=== PATIENT | male | born 2005 | race Caucasian/White ===

== ENCOUNTER → 2025-02-27 | Day surgery (SDC) | payer BC ==
[~2025-02-27] MED LIST: ACETAMINOPHEN 1000 MG/100 ML 100 ML IV ONE; DEXAMETHASONE SOD PHOS INJ 4 MG/ML SDV ONE; DEXMEDETOMIDINE HCL 200 MCG/2 ML VIAL ONE; FENTANYL CITRATE/PF 100MCG/2 ML INJ ONE; LIDOCAINE HCL (LTA) 4 ML SOLN ONE; LIDOCAINE HCL 2% LOCAL INJ 5 ML SDV VIAL INJ ONE; MIDAZOLAM HCL 2 MG/2 ML VIAL ONE; ONDANSETRON HCL INJ 2MG/ML 2ML 2 MG/ML VIAL ONE; PROMETHAZINE HCL 6.25 MG/5 ML SYRUP ONE; PROPOFOL IV EMULSION 10 MG/ML 20 ML VIAL ONE; ROCURONIUM BROMIDE 1 ML IV ONE; SEVOFLURANE INHAL SOLN 250 ML PEN BTL ONE; SUGAMMADEX SODIUM 200 MG/2 ML VIAL IV ONE
[2025-02-27] MEDS: LACTATED RINGER'S 1,000 ML ONE (06:03)
[2025-02-27] MEDS: MEPERIDINE HCL INJ 25 MG/ML VIAL ONE (08:14)
[2025-02-27 09:00] VITALS: BP 123/68; PULSE 65; RESP 18; O2SAT 99
== END | disposition home or self-care (01) ==
LOC: OR 05:22
PROVIDERS: ATTEND Otolaryngology
DX: J35.03 Chronic tonsillitis and adenoiditis (principal); J35.8 Other chronic diseases of tonsils and adenoids; F98.8 Other specified behavioral and emotional disorders with onset usually occurring in childhood and adolescence
CPT/HCPCS: 42821; 88304; J0131; J1100; J2003; J2175; J2250; J2405; J2704; J3010; J7121